=== PATIENT | male | born 2000 | race Caucasian/White ===

== ENCOUNTER 2024-04-17 08:55 | Emergency (ER) | payer MEDICAID ==
[~2024-04-17] VITALS: Ht 175.3 cm; Wt 120.0 kg
[2024-04-17 09:36] LABS: BASOPHILS % (AUTO) 0.1 % (0-1); EOSINOPHILS % (AUTO) 0.6 % (0-6); HEMATOCRIT 44.4 % (42.0-52.0); HEMOGLOBIN 15.5 g/dl (14.0-17.9); LYMPHOCYTES # (AUTO) 2.1 X10'3 (1.1-4.8); LYMPHOCYTES % (AUTO) 30.1 % (21-51); MEAN CORPUSCULAR HEMOGLOBIN 33.3 PG (27.0-31.0); MEAN CORPUSCULAR HGB CONC 34.9 g/dL (33.0-36.5); MEAN CORPUSCULAR VOLUME 95.5 FL (78-98); MEAN PLATELET VOLUME 6.9 FL (7.4-10.4); MONOCYTES # (AUTO) 0.6 X10'3 (0-0.9); MONOCYTES % (AUTO) 8.7 % (2-12); NEUTROPHILS # (AUTO) 4.2 X10'3 (1.8-7.7); NEUTROPHILS % (AUTO) 60.5 % (42-75); PLATELET COUNT 187 X10'3 (140-440); RED BLOOD COUNT 4.65 X10'6 (4.70-6.10); RED CELL DISTRIBUTION WIDTH 12.4 % (11.5-14.5); WHITE BLOOD COUNT 6.9 X10'3 (4.5-11.0)
[2024-04-17] MEDS: normal saline 1000ml 1,000 ML IV ONE (09:49)
[2024-04-17 09:51] LABS: ALBUMIN 3.6 G/DL (3.4-5.0); ANION GAP 5 (8-16); BLOOD UREA NITROGEN 10 MG/DL (7-18); BUN/CREATININE RATIO 14.1 (10.0-20.0); CALCIUM 9.4 MG/DL (8.5-10.1); CHLORIDE 107 MMOL/L (99-107); CREATININE 0.71 MG/DL (0.60-1.10); GLUCOSE 110 MG/DL (70-104); MAGNESIUM 2.1 MG/DL (1.5-2.4); POTASSIUM 4.2 MMOL/L (3.5-5.1); PRO BRAIN NATRIURETIC PEPTIDE 43 PG/ML (0-125); SODIUM 142 MMOL/L (135-145); TOTAL CARBON DIOXIDE 30.2 MMOL/L (24-32); eCRCL 158 ML/MIN; eGFR > 90 ML/MIN
[2024-04-17 10:00] LABS: BILIRUBIN,URINE NEGATIVE (Neg); CLARITY,URINE CLEAR (Clear); COLOR,URINE YELLOW (Yellow); GLUCOSE, URINE NEGATIVE (Neg); KETONES,URINE NEGATIVE (Neg); LEUKOCYTE ESTERASE ,URINE NEGATIVE (Neg); NITRITES, URINE NEGATIVE (Neg); OCCULT BLOOD,URINE NEGATIVE (Neg); PROTEIN,URINE NEGATIVE (Neg); UROBILINOGEN,URINE 0.2 E.U/dL (0.2-1.0)
[2024-04-17 10:05] LABS: URINE AMPHETAMINE SCREEN NEGATIVE (Neg); URINE BARBITUATE SCREEN NEGATIVE (Neg); URINE BENZODIAZEPINES SCREEN NEGATIVE (Neg); URINE CANNABINOID SCREEN NEGATIVE (Neg); URINE COCAINE SCREEN NEGATIVE (Neg); URINE METHADONE SCREEN NEGATIVE (Neg); URINE OPIATE SCREEN NEGATIVE (Neg); URINE PHENCYCLIDINE SCREEN NEGATIVE (Neg)
[2024-04-17 10:07] LABS: UA COLLECTION TYPE VOIDED
[2024-04-17 10:17] VITALS: BP 147/93; PULSE 84; RESP 14; TEMP 97.8; O2SAT 98
== END 2024-04-17 10:29 | disposition home or self-care (01) ==
LOC: ER 08:56
DX: R42 Dizziness and giddiness (principal); R07.89 Other chest pain; F32.A Depression, unspecified; Z90.49 Acquired absence of other specified parts of digestive tract; Z98.890 Other specified postprocedural states
CPT/HCPCS: 36415; 71045; 80048; 80305; 81003; 83735; 83880; 84484; 85025; 93005; 96360; 99285; J7030

== ENCOUNTER 2025-01-07 01:23 | Emergency (ER) | payer MEDICAID, OTHER ==
[~2025-01-07] VITALS: Ht 177.8 cm; Wt 120.0 kg
[2025-01-07 02:19] LABS: MEAN PLATELET VOLUME 7.5 FL (7.4-10.4); RED CELL DISTRIBUTION WIDTH 12.7 % (11.5-14.5)
[2025-01-07 02:29] LABS: CREATININE 0.72 MG/DL (0.60-1.10); ETHANOL 258 MG/DL (<10); TOTAL CARBON DIOXIDE 26.0 MMOL/L (24-32); eCRCL 159 ML/MIN; eGFR > 90 ML/MIN
[2025-01-07 03:11] LABS: EOSINOPHILS % (MANUAL) 1.0 % (0-6); LYMPHOCYTES % (MANUAL) 48.0 % (21-51); MONOCYTES % (MANUAL) 7.0 % (2-12); NEUTROPHILS % (MANUAL) 44.0 % (42-75); PLATELET ESTIMATE NORMAL
[2025-01-07 05:38] VITALS: TEMP 97.2
--- NOTE | 2025-01-07 06:39 | Physician Documentation ---
History of Present Illness ~ Chief Complaint: ETOH Stated Complaint: UNK Time Seen by MD: 06:27 Source: patient, EMS, EMS notes reviewed Mode of Arrival: EMS, Stretcher Exam Limitations: intoxication HPI Chief Complaint: Altered mental status Caveat: Altered mental status, alcohol intoxication Independent Historians: Paramedics History of Present Illness: Patient is a 25-year-old man brought in by paramedics from a bar. Bystanders called because they thought he needed assistance. Patient is believed to be intoxicated. Patient is now awake. Patient has no complaints. Patient denies any other drug use other than alcohol last night. Review of systems: All systems were reviewed and are negative except for what is indicated in the history of present illness. Past Medical History: Unknown Past Surgical History: Unknown Social History: Heavy alcohol use Medications: Reviewed as documented Nursing Notes Allergies: Reviewed as documented in Nursing Notes Tetanus within 5 years?: No Medication Reconciliation Allergies: Coded Allergies: No Known Allergies (Unverified , 04/17/24) Past Medical History Past Medical History: Depression Past Surgical History: appendectomy, brain surgery Review of Systems All Other Systems at this time: Reviewed and Negative ROS Patient denies any other acute symptoms other than above. All other systems are negative Unable to obtain complete ROS: altered mental status Physical Exam Vital Signs: RN Vital Signs have been reviewed: Yes, Temperature: 97.2, Source: Temporal, Heart Rate: 63, Respiratory Rate: 20, BP: 103/54, Pulse Oximetry: 99, Weight: 120.000 Oxygen Flow Rate: 0 Pulse Oximetry Reflects: adequate oxygenation Physical Exam General Appearance: No distress, patient is sleeping comfortably HEENT: Normal OP, moist oral mucosa, PERRL, EOMI, no evidence of head trauma, head and face is atraumatic Neck: supple, normal ROM, trachea midline Pulmonary: No respiratory distress, CTA, BS equal Cardiac: RRR, no murmur, rub or gallop, GI: nondistended, soft, nontender, normal bowel sounds, no guarding, no rebound Extremities: normal ROM, no swelling, non-tender, extremities atraumatic, ankle monitor right ankle Skin: intact, dry, warm, no rashes Neuro: AAOx3, speech is clear, no focal motor weakness Psych: normal affect, good eye contact, no apparent hallucination, normal speech Progress Results/Orders Results/Orders Completed Orders - JOHN PAUL BUENO MD Potassium Cl Sr Tablet (K-Dur Tablet) (01/07/25 06:40) Ringers Solution, Lacted (Lactated Ringe (01/07/25 06:45) Vital Signs 01/07/25 01/07/25 01/07/25 01/07/25 01:36 01:51 02:34 02:43 Temp 97.8 97.8 97.8 Pulse 79 70 68 Resp 18 18 18 B/P (MAP) 82/38 90/50 (63) 81/45 (57) Pulse Ox 96 97 99 O2 Flow Rate 0 0 0 01/07/25 01/07/25 01/07/25 01/07/25 03:07 04:15 04:38 05:38 Temp 97.3 97.2 97.9 97.2 Pulse 70 66 66 63 Resp 18 18 20 20 B/P (MAP) 86/55 (65) 105/62 (76) 101/62 (75) 103/54 (70) Pulse Ox 100 100 99 99 O2 Flow Rate 0 0 0 0 Laboratory Tests Test 01/07/25 01:56 White Blood Count 8.2 Red Blood Count 4.60 L Hemoglobin 15.0 Hematocrit 44.1 Mean Corpuscular Volume 95.9 Mean Corpuscular Hemoglobin 32.7 H Mean Corpuscular Hemoglobin Concent 34.1 Red Cell Distribution Width 12.7 Platelet Count 205 Mean Platelet Volume 7.5 Neutrophils (%) (Auto) 39.5 L Lymphocytes (%) (Auto) 51.6 H Monocytes (%) (Auto) 7.8 Eosinophils (%) (Auto) 0.9 Basophils (%) (Auto) 0.2 Neutrophils # (Auto) 3.2 Lymphocytes # (Auto) 4.2 Monocytes # (Auto) 0.6 Eosinophils # (Auto) 0.1 Basophils # (Auto) 0.0 CBC Comment Differential Total Cells Counted 100 Neutrophils % (Manual) 44.0 Lymphocytes % (Manual) 48.0 Monocytes % (Manual) 7.0 Eosinophils % (Manual) 1.0 Platelet Estimate Normal Red Blood Cell Morphology Perf Basophilic Stippling Anisocytosis 1+ Macrocytosis 1+ Sodium Level 145 Potassium Level 3.2 L Chloride Level 107 Carbon Dioxide Level 26.0 Anion Gap 12 Blood Urea Nitrogen 10 Creatinine 0.72 Estimated GFR/1.73 m2 > 90 BUN/Creatinine Ratio 13.9 Glucose Level 139 H Calcium Level 8.3 L Total Bilirubin 0.6 Aspartate Amino Transf (AST/SGOT) 45 H Alanine Aminotransferase (ALT/SGPT) 88 H Alkaline Phosphatase 77 Total Protein 7.7 Albumin 3.5 Globulin 4.2 Albumin/Globulin Ratio 0.8 L Lipase 30 Chemistry Comments Ethyl Alcohol Level 258 H Medical Decision Making Findings Differential diagnosis includes but is not limited to: See below Laboratory data independent interpretation: CBC: Unremarkable CMP: Potassium is mildly low at 3.2, glucose is mildly elevated at 139, AST and ALT are elevated at 45 and 88 respectively. Toxicology: Blood alcohol 258 Emergency department course/medical decision-making: Patient is a 25-year-old man who appears to be intoxicated. Patient is now awake. He has no complaints. Patient denies any drugs other than alcohol use last night. There was no evidence of a medical or surgical emergency. Lab work is unremarkable. Physical exam as now unremarkable. Patient is stable for discharge. Departure Time of Disposition: 06:38 Disposition: 01 HOME / SELF CARE / HOMELESS Impression: Primary Impression: Alcoholic intoxication Qualified Codes: F10.929 - Alcohol use, unspecified with intoxication, unspecified Additional Impression: Hypokalemia Condition: Improved Discharge Instructions: Alcohol Intoxication, Hypokalemia Education Educated: Patient Educated regarding: diagnosis, treatment Signature Scribe Signature: No scribe Attestation: No scribe JOHN PAUL BUENO MD Jan 07, 2025 06:39
[2025-01-07] MEDS: potassium Cl 20 mEq SR tablet PO ONE (07:41)
[2025-01-07] MEDS: ringers solution, lactated 1000ml IV soln IV ONE (07:44)
[2025-01-07 07:46] VITALS: BP 126/80; PULSE 86; RESP 16; O2SAT 99
== END 2025-01-07 07:48 | disposition home or self-care (01) ==
LOC: ER 01:24
DX: F10.129 Alcohol abuse with intoxication, unspecified (principal); E87.6 Hypokalemia; F32.A Depression, unspecified; Z90.49 Acquired absence of other specified parts of digestive tract; Y90.8 Blood alcohol level of 240 mg/100 ml or more
CPT/HCPCS: 80053; 80320; 83690; 85007; 85025; 99285